=== PATIENT | female | born 1955 | race Caucasian/White ===

== ENCOUNTER → 2016-10-08 | Outpatient (CLI) | payer MEDICARE, MEDICAID ==
[~2016-10-08] MED LIST: ALBU8.5H3 INFIL; BUDE10.22 INFIL; CALC-451 PO; CHOL10003 PO; CLON1TAB23 PO; DIPH-423 PO; FLUO60TA PO; GABA300C10 PO; HYDR12.53 PO; LEVO1CAP8 PO; LINA145C PO; LIOT50TA2 PO; LOSA25TA5 PO; MULT-82 PO; PANT40TA5 PO; SUVO20TA PO; TERB250T3 PO; TIOT18CA INH; VITA1TAB19 PO; areds 2 PO; triamcinolone cream TD
[2016-10-08 12:59] LABS: ASPARTATE AMINO TRANSFERASE 15 U/L (15-37); BLOOD UREA NITROGEN 17 mg/dL (7-18)
== END | disposition home or self-care (01) ==
LOC: STAR 11:29
PROVIDERS: ATTEND Orthopaedic Surgery Orthopaedic Surgery of the Spine
DX: Z01.818 Encounter for other preprocedural examination (principal); M46.1 Sacroiliitis, not elsewhere classified
CPT/HCPCS: 36415; 71020; 80053; 81003; 85025; 93005

== ENCOUNTER 2016-10-15 05:20 | Day surgery (SDC) | payer MEDICARE, MEDICAID ==
[~2016-10-15] VITALS: Ht 182.9 cm; Wt 107.0 kg
[2016-10-15] MEDS ORDERED: LACTATED RINGERS 1,000 ML IV SCH (06:21)
[2016-10-15 06:22] VITALS: BP 118/75
[2016-10-15] MEDS ORDERED: BUPIVACAINE/PF-EPI 0.25% 1:200K ONE (06:27)
[2016-10-15] MEDS ORDERED: NEOSPORIN OINT, 15GM ONE (06:27)
[2016-10-15] MEDS ORDERED: LIDOCAINE 1%, 2ML SQ PRN (06:30)
[2016-10-15] MEDS ORDERED: MIDAZOLAM 1 MG/ML, 2ML ONE (07:13)
[2016-10-15] MEDS ORDERED: FENTANYL PF 250 MCG/5ML ONE (07:13)
[2016-10-15] MEDS ORDERED: DEXAMETHASONE 4 MG/ML, 5ML ONE (07:35)
[2016-10-15] MEDS ORDERED: METOCLOPRAMIDE 5 MG/ML, 2ML ONE (07:35)
[2016-10-15] MEDS ORDERED: ONDANSETRON 2MG/ML, 2ML ONE (07:35)
[2016-10-15] MEDS ORDERED: PROPOFOL 10 MG/ML, 20ML ONE ×2 (07:35)
[2016-10-15] MEDS ORDERED: ROCURONIUM 10 MG/ML ONE (07:35)
[2016-10-15] MEDS ORDERED: morphine SULFATE 10 MG/ML, 1ML IVPush PRN (08:00)
[2016-10-15] MEDS ORDERED: PROMETHAZINE 25 MG/ML, 1ML IM PRN (08:00)
[2016-10-15] MEDS ORDERED: ONDANSETRON 2MG/ML, 2ML IVPush PRN ×2 (08:00→09:00)
[2016-10-15] MEDS ORDERED: OXYcodone/APAP 5/325MG TABLET PO PRN (08:00)
[2016-10-15] MEDS ORDERED: LEVOMEFOLATE PO SCH (09:00)
[2016-10-15] MEDS ORDERED: HYDROCHLOROTHIAZIDE 12.5 MG CAPSULE PO SCH (09:00)
[2016-10-15] MEDS ORDERED: hydrALAzine 20 MG/ML, 1ML IV PRN (09:00)
[2016-10-15] MEDS ORDERED: LABETALOL 5MG/ML, 20ML IV PRN (09:00)
[2016-10-15] MEDS ORDERED: ALGAL OIL PO SCH (09:00)
[2016-10-15] MEDS ORDERED: LIOTHYRONINE SODIUM PO SCH (09:00)
[2016-10-15] MEDS ORDERED: PANTOPROZOLE 40MG TABLET PO SCH (09:00)
[2016-10-15] MEDS ORDERED: OXYcodone 5 MG/5 ML ORAL.SOL UDC PO PRN (09:00)
[2016-10-15] MEDS ORDERED: PROMETHAZINE 25 MG/ML, 1ML IV PRN (09:00)
[2016-10-15] MEDS ORDERED: ACETAMINOPHEN 325 MG TABLET PO PRN (09:00)
[2016-10-15] MEDS ORDERED: LOSARTAN 25MG TABLET PO SCH (09:00)
[2016-10-15] MEDS ORDERED: [UNRECOGNIZED DRUG - OTHER] PO SCH (09:00)
[2016-10-15] MEDS ORDERED: FLUOXETINE HCL 80 MG PO SCH (09:00)
[2016-10-15] MEDS ORDERED: ALBUTEROL SULFATE 2.5 MG/3 ML NPPB PRN (09:00)
[2016-10-15] MEDS ORDERED: GABAPENTIN 300 MG CAPSULE PO SCH (09:00)
[2016-10-15] MEDS ORDERED: AREDS PO SCH (09:00)
[2016-10-15] MEDS ORDERED: FENTANYL PF 100 MCG/2ML IV PRN (09:00)
[2016-10-15] MEDS ORDERED: MULTIVITAMIN 1 TABLET PO SCH (09:00)
[2016-10-15] MEDS ORDERED: CHOLECALCIFEROL 1,000 UNIT TABLET PO SCH (09:00)
[2016-10-15] MEDS ORDERED: MEPERIDINE/PF 25MG/0.5ML IVPush PRN (09:00)
[2016-10-15] MEDS ORDERED: TRIAMCINOLONE TD SCH (09:00)
[2016-10-15] MEDS ORDERED: HYDROmorphone 2 MG/ML, 1ML ONE (09:02)
[2016-10-15] MEDS ORDERED: ACETAMINOPHEN 650 MG/20.3 ML UDC ONE (09:02)
[2016-10-15] MEDS ORDERED: OXYcodone 5 MG/5 ML ORAL.SOL UDC ONE (09:03)
[2016-10-15] MEDS ORDERED: ACETAMINOPHEN 325 MG TABLET ONE (09:03)
[2016-10-15] MEDS: HYDROmorphone 1 MG/ML, 1ML IV PRN ×4 (09:08→09:42)
[2016-10-15] MEDS ORDERED: TEMPLATE NON-FORMULARY MED. (Suvorexant (Belsomra) 20 MG) PO SCH (21:00)
[2016-10-15] MEDS ORDERED: TEMPLATE NON-FORMULARY MED. (Clonazepam** 2 MG) PO SCH (21:00)
== END 2016-10-15 13:15 | disposition home or self-care (01) ==
LOC: UNDOADMIN 05:20 → SDC 05:20 → ORIP 05:20 → EDSTATUS 07:30 → SDC 13:15 → UNDODISIN 13:15
PROVIDERS: ATTEND Orthopaedic Surgery Orthopaedic Surgery of the Spine
DX: M46.1 Sacroiliitis, not elsewhere classified (principal); I10 Essential (primary) hypertension; K21.9 Gastro-esophageal reflux disease without esophagitis; F17.210 Nicotine dependence, cigarettes, uncomplicated; M19.90 Unspecified osteoarthritis, unspecified site
CPT/HCPCS: 27279; 72202; C1762; C1776; J1100; J1170; J2250; J2405; J2704; J2765; J3010; J7120; 76000

== ENCOUNTER → 2017-01-27 | Outpatient (CLI) | payer MEDICARE, MEDICAID ==
[~2017-01-27] MED LIST changes: +HYDR25TA11 PO; +PRAM1TAB PO
[2017-01-27 10:45] LABS: HEMATOCRIT 37.2 % (34.6-47.8); HEMOGLOBIN 12.4 g/dL (11.7-16.4); WHITE BLOOD COUNT 6.4 x10^3/uL (3.4-10)
[2017-01-27 10:57] LABS: BLOOD UREA NITROGEN 16 mg/dL (7-18)
[2017-01-27 11:01] LABS: ASPARTATE AMINO TRANSFERASE 23 U/L (15-37)
[2017-01-27 11:09] LABS: PATH.CAST-FLAG NOT PRESENT; SPERM-FLAG NOT PRESENT; SRC-FLAG NOT PRESENT; XTAL-FLAG NOT PRESENT; YLC-FLAG NOT PRESENT
== END | disposition home or self-care (01) ==
LOC: STAR 09:21
PROVIDERS: ATTEND Orthopaedic Surgery Orthopaedic Surgery of the Spine
DX: Z01.818 Encounter for other preprocedural examination (principal); M41.84 Other forms of scoliosis, thoracic region
CPT/HCPCS: 36415; 71020; 80053; 81001; 85025; 93005

== ENCOUNTER 2017-02-04 06:32 | Inpatient (IN) | payer MEDICARE, MEDICAID ==
[~2017-02-04] VITALS: Ht 182.9 cm; Wt 112.2 kg
[~2017-02-04 06:32] MED LIST changes: -ALBU8.5H3 INFIL; +ALBU8.5H8 INFIL; +MULT-224 PO; -MULT-82 PO
[2017-02-04] MEDS ORDERED: EPINEPHRINE 1 MG/ML, 1ML ONE (06:47)
[2017-02-04] MEDS ORDERED: BACITRACIN OINT 500U/GM, 15 GM ONE (06:47)
[2017-02-04] MEDS ORDERED: BUPIVACAINE/PF 0.5% ONE (06:47)
[2017-02-04] MEDS ORDERED: LACTATED RINGERS 1,000 ML IV SCH (07:17)
[2017-02-04 07:41] VITALS: BP 129/76
[2017-02-04] MEDS ORDERED: MIDAZOLAM 1 MG/ML, 2ML ONE (08:11)
[2017-02-04] MEDS ORDERED: FENTANYL PF 100 MCG/2ML ONE ×2 (08:11→10:39)
[2017-02-04] MEDS ORDERED: MEPERIDINE/PF 25MG/0.5ML IVPush PRN (08:30)
[2017-02-04] MEDS ORDERED: ACETAMINOPHEN 325 MG TABLET PO PRN (08:30)
[2017-02-04] MEDS ORDERED: hydrALAzine 20 MG/ML, 1ML IV PRN (08:30)
[2017-02-04] MEDS ORDERED: LABETALOL 5MG/ML, 20ML IV PRN (08:30)
[2017-02-04] MEDS ORDERED: ONDANSETRON 2MG/ML, 2ML IVPush PRN ×2 (08:30→09:00)
[2017-02-04] MEDS ORDERED: OXYcodone 5 MG/5 ML ORAL.SOL UDC PO PRN (08:30)
[2017-02-04] MEDS ORDERED: PROMETHAZINE 25 MG/ML, 1ML IV PRN (08:30)
[2017-02-04] MEDS ORDERED: DIPHENHYDRAMINE 50 MG CAPSULE PO PRN (09:00)
[2017-02-04] MEDS: LEVOMEFOLATE HOMEMEDPO SCH (09:00)
[2017-02-04] MEDS ORDERED: PROMETHAZINE 25 MG/ML, 1ML IM PRN (09:00)
[2017-02-04] MEDS: HYDROCHLOROTHIAZIDE 12.5 MG CAPSULE PO SCH (09:00)
[2017-02-04] MEDS ORDERED: MAGNESIUM HYDROXIDE 8%, 30ML UDC PO PRN (09:00)
[2017-02-04] MEDS: LIOTHYRONINE 25 MCG TABLET PO SCH (09:00)
[2017-02-04] MEDS ORDERED: CEFAZOLIN PMX 1GM/50ML 50 ML IVPB SCH (09:00)
[2017-02-04] MEDS: [UNRECOGNIZED DRUG - OTHER] HOMEMEDPO SCH (09:00)
[2017-02-04] MEDS ORDERED: morphine SULFATE 10 MG/ML, 1ML IVPush PRN (09:00)
[2017-02-04] MEDS ORDERED: SENNA/DOCUSATE TABLET PO PRN (09:00)
[2017-02-04] MEDS: GABAPENTIN 300 MG CAPSULE PO SCH ×3 (09:00→20:49)
[2017-02-04] MEDS: PRAMIPEXOLE 0.5MG TABLET PO SCH ×2 (09:00→20:49)
[2017-02-04] MEDS ORDERED: BISACODYL 10 MG SUPP PR PRN (09:00)
[2017-02-04] MEDS: PANTOPROZOLE 40MG TABLET PO SCH (09:00)
[2017-02-04] MEDS: DOCUSATE 100 MG CAPSULE PO SCH ×2 (09:00→20:48)
[2017-02-04] MEDS: FLUOXETINE 20 MG CAPSULE PO SCH (09:00)
[2017-02-04] MEDS: ALGAL OIL HOMEMEDPO SCH (09:00)
[2017-02-04] MEDS: LOSARTAN 25MG TABLET PO SCH (09:00)
[2017-02-04] MEDS ORDERED: DEXAMETHASONE 4 MG/ML, 5ML ONE (09:14)
[2017-02-04] MEDS ORDERED: CEFAZOLIN 1,000 MG ONE (09:14)
[2017-02-04] MEDS ORDERED: ROCURONIUM 10 MG/ML ONE (09:14)
[2017-02-04] MEDS ORDERED: MAGNESIUM SULFATE 8 MEQ/2 ML, 2ML ONE (09:14)
[2017-02-04] MEDS ORDERED: ONDANSETRON 2MG/ML, 2ML ONE (09:14)
[2017-02-04] MEDS ORDERED: PROPOFOL 10 MG/ML, 20ML ONE (09:14)
[2017-02-04] MEDS ORDERED: SUCCINYLCHOLINE 20 MG/ML, 10ML ONE (09:14)
[2017-02-04] MEDS ORDERED: MORPHINE SULFATE 4 MG/ML, 1ML ONE (10:14)
[2017-02-04] MEDS ORDERED: ACETAMINOPHEN 650 MG/20.3 ML UDC ONE (10:39)
[2017-02-04] MEDS ORDERED: HYDROmorphone 2 MG/ML, 1ML ONE (10:39)
[2017-02-04] MEDS ORDERED: OXYcodone 5 MG/5 ML ORAL.SOL UDC ONE (10:40)
[2017-02-04] MEDS: HYDROmorphone 1 MG/ML, 1ML IV PRN ×2 (10:50→11:09)
[2017-02-04] MEDS: FENTANYL PF 100 MCG/2ML IV PRN ×2 (10:50→11:26)
[2017-02-04] MEDS ORDERED: DIPHENHYDRAMINE 50 MG/ML, 1ML ONE (12:18)
[2017-02-04] MEDS ORDERED: DIPHENHYDRAMINE 50 MG/ML, 1ML IVPush ONE (12:30)
[2017-02-04] MEDS ORDERED: [UNRECOGNIZED DRUG - REMARK] MC SCH (13:00)
[2017-02-04 13:34] VITALS: BP 142/86
[2017-02-04 13:59] VITALS: BP 142/86
[2017-02-04] MEDS: NS + 20MEQ KCL 1,000 ML IV SCH (15:38)
[2017-02-04] MEDS: CEFAZOLIN PMX 2GM/50ML 50 ML IVPB SCH (17:00)
[2017-02-04 20:31] VITALS: BP 133/72
[2017-02-04] MEDS: OXYcodone/APAP 5/325MG TABLET PO PRN (20:53)
[2017-02-04] MEDS ORDERED: TEMPLATE NON-FORMULARY MED. (Suvorexant (Belsomra) 20 MG) HOMEMEDPO SCH (21:00)
[2017-02-05] MEDS: CEFAZOLIN PMX 2GM/50ML 50 ML IVPB SCH ×2 (01:01→09:32)
[2017-02-05] MEDS: OXYcodone/APAP 5/325MG TABLET PO PRN ×3 (01:02→14:30)
[2017-02-05 02:00] VITALS: BP 112/69
[2017-02-05] MEDS: NS + 20MEQ KCL 1,000 ML IV SCH ×2 (02:22→12:10)
[2017-02-05 07:29] VITALS: BP 129/76
[2017-02-05] MEDS ORDERED: CHOLECALCIFEROL 1,000 UNIT TABLET PO SCH ×2 (09:00)
[2017-02-05] MEDS ORDERED: MULTIVITAMIN 1 TABLET PO SCH (09:00)
[2017-02-05] MEDS: FLUOXETINE 20 MG CAPSULE PO SCH (09:34)
[2017-02-05] MEDS: PANTOPROZOLE 40MG TABLET PO SCH (09:34)
[2017-02-05] MEDS: GABAPENTIN 300 MG CAPSULE PO SCH (09:35)
[2017-02-05] MEDS: LIOTHYRONINE 25 MCG TABLET PO SCH (09:35)
[2017-02-05] MEDS: HYDROCHLOROTHIAZIDE 12.5 MG CAPSULE PO SCH (09:36)
[2017-02-05] MEDS: PRAMIPEXOLE 0.5MG TABLET PO SCH (09:36)
[2017-02-05] MEDS: LOSARTAN 25MG TABLET PO SCH (09:37)
[2017-02-05] MEDS: DOCUSATE 100 MG CAPSULE PO SCH (09:37)
[2017-02-05] MEDS: ALGAL OIL HOMEMEDPO SCH (09:38)
[2017-02-05] MEDS: LEVOMEFOLATE HOMEMEDPO SCH (09:38)
[2017-02-05] MEDS: [UNRECOGNIZED DRUG - OTHER] HOMEMEDPO SCH (09:38)
[2017-02-05] MEDS ORDERED: OXYC-302 PO (13:54)
[2017-02-05 14:02] VITALS: BP 105/67
== END 2017-02-05 15:04 | disposition home or self-care (01) | DRG 460 ==
LOC: ORIP 06:32 → 4NOR 12:38 → DCLOUNGE 02-05 14:49
PROVIDERS: ADMIT Orthopaedic Surgery Orthopaedic Surgery of the Spine; ATTEND Orthopaedic Surgery Orthopaedic Surgery of the Spine
PROC: 0SG704Z Fusion of Right Sacroiliac Joint with Internal Fixation Device, Open Approach (ICD-10-PCS; 2017-02-04)
PROC: 0SG70KZ Fusion of Right Sacroiliac Joint with Nonautologous Tissue Substitute, Open Approach (ICD-10-PCS; 2017-02-04)
PROC: 0SP704Z Removal of Internal Fixation Device from Right Sacroiliac Joint, Open Approach (ICD-10-PCS; principal; 2017-02-04 09:00)
DX: M96.0 Pseudarthrosis after fusion or arthrodesis (principal); E66.01 Morbid (severe) obesity due to excess calories; Z68.33 Body mass index [BMI] 33.0-33.9, adult; Z88.6 Allergy status to analgesic agent; Z88.3 Allergy status to other anti-infective agents; Z91.013 Allergy to seafood
CPT/HCPCS: 72202; 76000; J0171; J0690; J1100; J1170; J2250; J2405; J2550; J2704; J3010; J3475; J3480; J3490; C1762; C1776; J0330; J1200; J7120

== ENCOUNTER 2017-11-27 20:41 | Emergency (ER) | payer MEDICARE, MEDICAID ==
[~2017-11-27] VITALS: Ht 182.9 cm; Wt 113.6 kg
[~2017-11-27 20:41] MED LIST changes: +OXYC-302 PO
[2017-11-27 21:02] LABS: BASOPHILS # (AUTO) 0.02 x10^3/uL (0-0.1); BASOPHILS % (AUTO) 0 % (0-1); EOSINOPHILS # (AUTO) 0.16 x10^3/uL (0-0.4); EOSINOPHILS % (AUTO) 2 % (1-7); LYMPHOCYTES # (AUTO) 2.05 x10^3/uL (1-3.4); LYMPHOCYTES % (AUTO) 21 % (22-44); MD NO; MEAN CORPUSCULAR HEMOGLOBIN 29.1 pg (27.0-34.8); MEAN CORPUSCULAR HGB CONC 33.2 g/dL (32.4-35.8); MEAN CORPUSCULAR VOLUME 87.6 fL (80-100); MEAN PLATELET VOLUME 8.3 fL (7.4-10.4); MONOCYTES # (AUTO) 0.89 x10^3/uL (0.2-0.8); MONOCYTES % (AUTO) 9 % (2-9); NEUTROPHILS # (AUTO) 6.66 x10^3/uL (1.8-6.8); NEUTROPHILS % (AUTO) 68 % (42-75); PLATELET COUNT 241 x10^3/uL (130-400); RED CELL DISTRIBUTION WIDTH 14.6 % (9.6-15.2)
[2017-11-27 21:14] LABS: ALBUMIN 3.3 g/dL (3.4-5.0); ANION GAP 10 mmol/L (5-15); CALCIUM 9.8 mg/dL (8.5-10.1); CHLORIDE 103 mmol/L (98-107); CREATININE 1.29 mg/dL (0.55-1.02)
[2017-11-27 22:10] LABS: MICROSCOPIC NOT IND
[2017-11-27 22:18] LABS: CULTURE INDICATED? NO
[2017-11-27 23:48] VITALS: BP 106/48
== END 2017-11-27 23:50 | disposition home or self-care (01) ==
LOC: ED 21:59
DX: R33.9 Retention of urine, unspecified (principal); I10 Essential (primary) hypertension
CPT/HCPCS: 36415; 51702; 74022; 80048; 81003; 82040; 85025; 93005; 99285

== ENCOUNTER 2018-06-16 15:28 | Emergency (ER) | payer MEDICARE, MEDICAID ==
[~2018-06-16] VITALS: Ht 182.9 cm; Wt 121.5 kg
[~2018-06-16 15:28] MED LIST changes: +HYDR12.517 PO; -HYDR12.53 PO; +LOSA25TA25 PO; -LOSA25TA5 PO
--- NOTE | 2018-06-16 16:58 | NUR ---
Pt presents for no urine output through velez. Pt is 1 week s/p [facility]nia [facility]. Pt states no urine output through velez since yesterday. Some urine around cath. 2+bilateral pitting edema also noted. Pt denies SOB.
[2018-06-16 17:10] LABS: BASOPHILS # (AUTO) 0.01 x10^3/uL (0-0.1); BASOPHILS % (AUTO) 0 % (0-1); EOSINOPHILS # (AUTO) 0.22 x10^3/uL (0-0.4); EOSINOPHILS % (AUTO) 3 % (1-7); LYMPHOCYTES # (AUTO) 1.17 x10^3/uL (1-3.4); LYMPHOCYTES % (AUTO) 17 % (22-44); MD NO; MEAN CORPUSCULAR HEMOGLOBIN 29.3 pg (27.0-34.8); MEAN CORPUSCULAR HGB CONC 32.6 g/dL (32.4-35.8); MEAN CORPUSCULAR VOLUME 89.7 fL (80-100); MEAN PLATELET VOLUME 7.8 fL (7.4-10.4); MONOCYTES % (AUTO) 7 % (2-9); NEUTROPHILS # (AUTO) 5.17 x10^3/uL (1.8-6.8); NEUTROPHILS % (AUTO) 73 % (42-75); PLATELET COUNT 270 x10^3/uL (130-400); RED BLOOD COUNT 3.68 x10^6/uL (3.82-5.3); RED CELL DISTRIBUTION WIDTH 14.2 % (9.6-15.2)
[2018-06-16 17:21] LABS: ALANINE AMINOTRANSFERASE 45 U/L (12-78); ANION GAP 6 mmol/L (5-15); CALCIUM 9.1 mg/dL (8.5-10.1); CHLORIDE 107 mmol/L (98-107); CREATININE 0.69 mg/dL (0.55-1.02)
--- NOTE | 2018-06-16 17:23 | NUR ---
Removed velez per rder. Ambulated pt to BR with assistance and walker. assisted pt with jose cleaning prior to urine sample obtainment. Pt able to void 400ml.
[2018-06-16 17:25] LABS: ALKALINE PHOSPHATASE 136 U/L (45-117); BILIRUBIN,TOTAL 0.3 mg/dL (0.2-1.0); TOTAL PROTEIN 6.9 g/dL (6.4-8.2)
[2018-06-16 17:27] LABS: MICROSCOPIC AUTO
[2018-06-16 17:33] LABS: CULTURE INDICATED? YES
[2018-06-16 18:47] VITALS: BP 133/81
== END 2018-06-16 18:52 | disposition home or self-care (01) ==
LOC: ED 17:36
DX: N30.00 Acute cystitis without hematuria (principal); I87.2 Venous insufficiency (chronic) (peripheral); R60.9 Edema, unspecified; K21.9 Gastro-esophageal reflux disease without esophagitis; I10 Essential (primary) hypertension; F32.9 Major depressive disorder, single episode, unspecified; F17.200 Nicotine dependence, unspecified, uncomplicated; Z88.5 Allergy status to narcotic agent; Z90.89 Acquired absence of other organs; Z91.013 Allergy to seafood; Z91.041 Radiographic dye allergy status
CPT/HCPCS: 36415; 71045; 80053; 81001; 83880; 85025; 87077; 87086; 87186; 93005; 99284